=== PATIENT | female | born 1965 | race Caucasian/White ===

== ENCOUNTER 2018-06-09 16:45 | Emergency (ER) | payer MEDICAID ==
[~2018-06-09] VITALS: Ht 152.4 cm; Wt 55.0 kg
[2018-06-09 17:02] VITALS: Ht 152.4 cm; Wt 55.0 kg
[2018-06-09 20:11] VITALS: BP 118/64
== END 2018-06-09 20:11 | disposition home or self-care (01) ==
LOC: ED 16:45
DX: K12.2 Cellulitis and abscess of mouth (principal)
CPT/HCPCS: J0295; J2001

== ENCOUNTER 2019-09-13 23:25 | Emergency (ER) | payer SELFPAY ==
[~2019-09-13] VITALS: Ht 139.7 cm; Wt 62.2 kg
[2019-09-13 23:58] LABS: BASOPHIL % 0.2 % (0-2); PLATELET COUNT 231 x10^3mcL (130-400); RED CELL DISTRIBUTION WIDTH 13.8 % (11.5-14.5)
[2019-09-14 00:26] LABS: CALCIUM 8.7 mg/dL (8.5-10.1); CARBON DIOXIDE 26.6 mmol/L (21-32); CHLORIDE SERUM 104 mmol/L (98-107); CREATININE SERUM 0.8 mg/dL (0.6-1.0); GFR1 > 60 mL/min; GLUCOSE SERUM 141 mg/dL (74-106); POTASSIUM SERUM 3.7 mmol/L (3.5-5.1); SODIUM SERUM 141 mmol/L (136-145)
[2019-09-14 00:31] LABS: ALBUMIN 3.5 g/dL (3.4-5.0); ALKALINE PHOSPHATASE 154 U/L (46-116); ALT/SGPT 24 U/L (14-59); AST/SGOT 19 U/L (15-37); BILIRUBIN TOTAL 0.2 mg/dL (0.20-1.00); TOTAL PROTEIN, SERUM 7.7 g/dL (6.4-8.2)
[2019-09-14 00:37] LABS: FREE T4 0.95 ng/dL (0.76-1.46); FREE THYROXINE INDEX 2.9 ug/dL (1.4-4.5); T4(THYROXINE) 8.5 ug/dL (4.7-13.3)
[2019-09-14 02:15] LABS: T3 TOTAL 1.34 ng/mL
[2019-09-14 02:32] VITALS: BP 117/61
== END 2019-09-14 02:32 | disposition home or self-care (01) ==
LOC: ED 23:25
PROVIDERS: Emergency Medicine
DX: F43.20 Adjustment disorder, unspecified (principal); R51 Headache
CPT/HCPCS: 36415; 84439